=== PATIENT | female | born 1970 | race Caucasian/White ===

== ENCOUNTER 2016-11-22 12:40 | Emergency (ER) | payer SELFPAY ==
[~2016-11-22] VITALS: Ht 160 cm; Wt 127.0 kg
[2016-11-22 12:42] VITALS: BP 164/95; PULSE 89; RESP 18; TEMP 97.3; O2SAT 97
[2016-11-22] MEDS ORDERED: BENA25TA3 PO (13:07)
[2016-11-22] MEDS ORDERED: MOTR200T4 PO (13:07)
--- NOTE | 2016-11-22 13:27 | PD ---
HPI Chief Complaint: Skin Problem Time Seen by Provider: 13:20 Travel History International Travel<30 days: No Contact w/Intl Traveler<30days: No Traveled to known affect area: No History of Present Illness HPI 46-year-old female presents to the emergency department with complaint of hives and itching times one year. She presents seeking an answer to why she is continuing to have hives and itching. She has followed up with dermatology and an face worker. She was told she has an allergy to shellfish. She has been given prescriptions for steroids, Benadryl, and other medications with no relief. She has also been told that her hives were due to her urinary tract infection which she was treated for back in August with no resolution of her hives. She denies fever, chills, nausea, vomiting. Denies chest pain, shortness breath, abdominal pain, change in urine or stool. Dr. Bee is her primary care provider. No other modifying factors or associated signs and symptoms. Allergies-Medications Reported Meds & Prescriptions Reported Meds & Active Scripts Active Reported Benadryl Allergy (Diphenhydramine HCl) 25 Mg Tab 50 Mg PO Q6H PRN Motrin Ib (Ibuprofen) 200 Mg Tab 400 Mg PO Q6H PRN Review of Systems Except as stated in HPI: all other systems reviewed are Neg Physical Exam Narrative GENERAL: Well-nourished, well-developed patient, in no acute distress; afebrile , nontoxic-appearing SKIN: Warm and dry. Generalized large and small areas of maculopapular rash to abdomen, back, bilateral upper and lower extremities. Left anterior thigh with area of ecchymosis. HEAD: Atraumatic. Normocephalic. EYES: Pupils equal and round at 3 mm with brisk reaction. No scleral icterus. No injection or drainage. ENT: Mucosa pink and moist. EARS: Bilateral pinnae and external canals appear within normal limits. NECK: Trachea midline. No lymphadenopathy. CARDIOVASCULAR: Regular rate and rhythm. No murmur appreciated. RESPIRATORY: No accessory muscle use. Clear to auscultation. Breath sounds equal bilaterally. GASTROINTESTINAL: Abdomen soft, non-tender, nondistended. Hepatic and splenic margins not palpable. Bowel sounds are active 4 quadrants. MUSCULOSKELETAL: No obvious deformities. No clubbing. No cyanosis. No edema. NEUROLOGICAL: Awake and alert. Oriented 3. No obvious cranial nerve deficits. Motor grossly within normal limits. Normal speech. Moves all extremities. 5/5 strength to all extremities. PSYCHIATRIC: Appropriate mood and affect; insight and judgment normal. Data Data Last Documented VS Vital Signs Date Time Temp Pulse Resp B/P Pulse Ox O2 Delivery O2 Flow Rate FiO2 11/22/16 12:42 97.3 89 18 164/95 97 Room Air MDM Medical Screen Exam Complete: Yes Emergency Medical Condition: No Differential Diagnosis Hives, contact dermatitis, medical clearance Narrative Course 46-year-old female with generalized hives times one year. She has followed up with dermatology and face worker. She is afebrile and nontoxic-appearing. She denies fever, chills, nausea or vomiting. Dr. Bee is her primary care provider. The patient has previously been treated with Benadryl, prednisone, and other medications without resolution of her symptoms. patient to follow up with primary care provider and dermatology. Vital signs are stable and the patient is stable for outpatient follow-up and treatment. The patient has no urgent or emergent medical complaints. There is no emergent or urgent medical need at this time. I instructed the patient to follow up with their primary care provider. A medical screening exam was performed: At the time of evaluation the presenting medical condition was determined not to be of an emergent nature. The patient was given the option of receiving additional care, but declined. Patient was given options for additional community resources from which to obtain care. The Patient Has Been advised to seek medical attention for their presenting complaint. The patient has been advised to return to the ER at any time if an emergent condition develops. Primary Impression: Encounter for medical screening examination Condition: Stable Yue Tejada Nov 22, 2016 13:27
== END 2016-11-22 13:32 | disposition left against medical advice (07) ==
LOC: NEPB 12:40
DX: L50.9 Urticaria, unspecified (principal)
CPT/HCPCS: 99281